=== PATIENT | male | born 1940 | race Caucasian/White ===

== ENCOUNTER 2016-10-30 07:15 | Emergency (ER) | payer OTHER ==
[2016-10-30 07:21] VITALS: TEMP 97.9
--- NOTE | 2016-10-30 07:36 | CPEKG ---
Heart Rate: 141 RR Interval: 426 P-R Interval: 256 QRSD Interval: 98 QT Interval: 336 QTC Interval: 515 P [place]: 0 QRS [place]: 24 T Wave [place]: 16 EKG Severity - ABNORMAL ECG - EKG Impression: SINUS TACHYCARDIA EKG Impression: FIRST DEGREE AV BLOCK EKG Impression: PROMINENT P WAVES, NONDIAGNOSTIC EKG Impression: ST DEPRESSION, PROBABLY RATE RELATED EKG Impression: PROLONGED QT INTERVAL Electronically Signed By: Eun Quiroz 30-Oct-2016 15:11:20
--- NOTE | 2016-10-30 07:48 | EDPHY ---
H & P Time Seen by Provider: 10/30/16 07:43 HPI/ROS: CHIEF COMPLAINT: palpitations, fast heart rate HISTORY OF PRESENT ILLNESS: Patient is a 75-year-old male who presents to the emergency department with palpitations and rapid heart rate. Patient states he developed AFib in August. He was cardioverted on 09/19/2015. Of note, he was placed on Pradaxa prior to his cardioversion. Patient was not placed on any other rhythm control medications. He again had an episode of atrial fibrillation on 10/05/2016. He was cardioverted by Dr. Barriga. He was started on propafenone. He takes 150 mg three times daily. Patient went to bed well last evening with no complaints. He woke this morning with a rapid heart rate and palpitations. He has mild shortness of breath. No chest pain, nausea, vomiting or diaphoresis. No leg pain or swelling. No new medications or changes in his medications. The patient did not take his propafenone this morning. He was concerned that his atrial fibrillation was starting because "he opened new bottle". REVIEW OF SYSTEMS: My complete review of systems is negative except as mentioned in the HPI. Past Medical/Surgical History: Includes atrial fibrillation Past surgical history: Denies Social history: The patient is . Denies smoking or drugs. Smoking Status: Former smoker Physical Exam: Vitals noted GENERAL: No acute distress, alert. HEENT: Eyes normal to inspection, normal pharynx, no signs of dehydration. NECK: No thyromegaly, no lymphadenopathy, supple. RESPIRATORY: Clear to auscultation bilaterally, no rales, rhonchi or wheezing. CVS: regular tachycardia, no rubs, murmurs, or gallops. ABDOMEN: Soft, nontender, nondistended, no organomegaly. BACK: Normal to inspection, no CVA tenderness. SKIN: Normal color, no rash, warm, dry. No pallor. EXTREMITIES: No pedal edema, no calf tenderness, no Homans sign or cords, no joint swelling. NEURO/PSYCH: Alert and oriented x3, normal mood and affect, normal motor sensory exam. Constitutional: Initial Vital Signs Temperature (C) 36.6 C 10/30/16 07:17 Heart Rate 141 H 10/30/16 07:17 Respiratory Rate 16 10/30/16 07:17 Blood Pressure 110/82 H 10/30/16 07:17 O2 Sat (%) 96 10/30/16 07:17 O2 Delivery Mode [Post Non-Rebreather Mask Procedure 1st] O2 Delivery Mode [Procedural Non-Rebreather Mask 1st] O2 Delivery Mode Non-Rebreather Mask O2 (L/minute) [Post Procedure 10 1st] O2 (L/minute) [Procedural 1st] 10 O2 (L/minute) 10 Allergies/Adverse Reactions: No Allergies [NKDA] Allergy (Verified 09/19/16 13:13) Home Medications: Medication Instructions Recorded Dabigatran Etexilate Mesyl 150 mg PO BID 09/19/16 [Pradaxa 150 MG (*)] Aspirin 81mg (*) 81 mg PO DAILY 10/05/16 Multi-Vitamin Daily 1 PO DAILY 10/05/16 Propafenone HCl 150 mg PO TID 10/05/16 Medical Decision Making Procedures: Procedure: Procedural sedation. Indication: Atrial flutter cardioversion. A pre-sedation evaluation was completed on the patient just prior to the procedure. Patient is an appropriate candidate for procedural sedation with ASA class E. last meal, last evening. The risks of the sedation were discussed including but not limited to dysrhythmia, need for airway intervention or general anesthesia, disability, ; and verbal consent obtained. A timeout was observed and patient's identity confirmed. The patient was sedated with propofol fall. The patient was monitored with continuous pulse oximetry, capnography, and monitoring specialist. There were no complications and no significant hypoxemia. I remained at the bedside for the sedation. The total time I spent in the procedural sedation was 10 minutes. Procedure: Electrical cardioversion. The patient was electrically cardioverted for atrial flutter with rapid ventricular response. The patient was on a continuous cafeteria monitor, with airway equipment at the bedside. The patient was on continuous pulse oximetry. The cardioversion was attempted with 200 joules biphasic current. The cardioversion was successful. The patient tolerated the procedure well with no complications. The procedure was performed by myself. ED Course/Re-evaluation: In the emergency department I discussed possible etiologies with the patient. He appeared to be fairly regular at 140 on monitor. Laboratory studies and EKG were obtained. EKG: Tachycardia at 1:41 a.m.. This is regular. This is likely a flutter. Normal axis. Prolonged QT. Slight ST depression. 845: I discussed the case with Dr. Estrada from Cardiology. He recommends that he should take his morning dose of propafenone 150 mg now. He recommended cardioversion. If the patient converts he should continue his propafenone, Pradaxa and see him soon in his office. I discussed the plan with the patient. I discussed the risks and benefits of cardioversion and conscious sedation. Patient consents to both. Patient is competent to make this decision. 830: Dr. Blanchard is in the emergency department to evaluate the patient. He confirms his plan with cardioversion and continue propafenone. Patient underwent conscious sedation and cardioversion in the emergency department. Please refer to the procedure note. No complications. Post conversion EKG: Sinus rhythm at 92. Normal axis. Normal intervals. No ST or T-wave abnormalities. I rechecked the patient on numerous occasions. His mental status improved post sedation. He is back to baseline. He had no complaints. The patient brought his medications with him. He was given propafenone 150 mg orally from his prescription. Prior to leaving I discussed the plan with the patient and his . I gave him warnings prior to leaving. He will return with worsening symptoms. He is aware he needs to continue his current medications. Differential Diagnosis: My differential includes but is not limited to atrial fibrillation, atrial flutter, sinus dysrhythmia, ACS, acute OR, PE, electrolyte abnormality, sugar abnormality Critical Care Time: Patient required 35 minutes of critical care time. This was exclusive of any unbundled procedure. This was due to the patient's dysrhythmia, rapid ventricular response, frequent rechecks at the bedside, multiple consultations with the patient and his , and multiple consultations with Cardiology. - Data Points Medications Given: Discontinued Medications Sodium Chloride (Ns) 1,000 mls @ 0 mls/hr IV ONCE ONE PRN Reason: Wide Open Stop: 10/30/16 09:33 Last Admin: 10/30/16 09:38 Dose: 1,000 mls Departure - Departure Disposition: Home, Routine, Self-Care Clinical Impression: Atrial flutter Qualifiers: Atrial flutter type: unspecified Qualifier Code: (I48.92) Unspecified atrial flutter Condition: Good Instructions: Atrial Flutter (ED) Additional Instructions: Continue your medications as directed. You need close follow-up with Cardiology. Dr. Blanchard's office will call you early this week for an appointment. Referrals: THERESE GUERRERO [Primary Care Provider] - As per Instructions Homar Blanchard MD [Medical Doctor] - 2-3 days without fail
[2016-10-30] MEDS ORDERED: PROPOFOL 200 MG/20 ML VIAL ONE (08:03)
[2016-10-30] MEDS ORDERED: NS 1,000 ML IV ONE (09:32)
[2016-10-30 10:09] VITALS: BP 108/72; PULSE 84; RESP 16; O2SAT 90
--- NOTE | 2016-10-30 12:36 | CPEKG ---
Heart Rate: 92 RR Interval: 652 P-R Interval: 192 QRSD Interval: 96 QT Interval: 352 QTC Interval: 436 P [place]: 34 QRS [place]: 5 T Wave [place]: 46 EKG Severity - OTHERWISE NORMAL ECG - EKG Impression: SINUS RHYTHM EKG Impression: VENTRICULAR PREMATURE COMPLEX Electronically Signed By: Eun Quiroz 30-Oct-2016 15:11:20
== END 2016-10-30 10:06 | disposition home or self-care (01) ==
DX: I48.92 Unspecified atrial flutter (principal); Z79.82 Long term (current) use of aspirin; Z87.891 Personal history of nicotine dependence
CPT/HCPCS: 92960; 93005; 96360; 99291; J2704

== ENCOUNTER → 2017-12-25 | Outpatient (CLI) | payer OTHER | LOC: BHFA 09:30 | PROVIDERS: ATTEND Internal Medicine Interventional Cardiology | DX: I48.91 Unspecified atrial fibrillation (principal) | CPT/HCPCS: 78452; 93017; A9500; J2785 ==